=== PATIENT | female | born 1945 | race Caucasian/White ===

== ENCOUNTER → 2016-12-08 | Day surgery (SDC) | payer MEDICARE, OTHER ==
[~2016-12-08] VITALS: Ht 152.4 cm; Wt 58.5 kg
[~2016-12-08] MED LIST: ACETAMINOPHEN 325 MG TAB ONE; CIPR0.3S2 RIGHT EYE; CYCLOPENTOLATE HCL 1% OPHT SOLN 2 ML BTL ONE; DEXAMETHASONE SOD PHOS 4 MG/ML VIAL ONE; FAMOTIDINE 20 MG/2 ML VIAL ONE; KETO0.5S2 EACH EYE; KETO0.5S2 RIGHT EYE; MELA1TAB18 PO; MIDAZOLAM HCL 2 MG/2 ML VIAL ONE; ONDANSETRON HCL 4 MG/2 ML VIAL IV PUSH ONE; PHENYLEPHRINE HCL 10% OPTH SOLN 5 ML BTL ONE; PRED1SUS RIGHT EYE; PRED1SUS6 EACH EYE; PROPOFOL 200 MG/20 ML AMP IV ONE; SODIUM CHLORID 0.9% 500 ML INJ 500 ML ONE; TETRACAINE 0.5% OPTH SOLN 4 ML BTL RIGHT EYE ONE; TROPICAMIDE 1% OPHT SOLN 15 ML BTL ONE; fentaNYL CITRATE 250 MCG/5 ML AMP ONE
[2016-12-08 07:30] VITALS: BP 129/72; PULSE 60; RESP 16; TEMP 97.9; O2SAT 94
[2016-12-08] MEDS: TOBRAMYCIN/DEXAMETHASONE OPTH OINT 3.5 GM TUBE ONE ×2 (09:26)
--- NOTE | 2016-12-08 09:42 | PD.OP ---
Operative Report Date of Surgery: Dec 08, 2016 Preoperative Diagnosis: (1) Nuclear sclerotic cataract of right eye Postoperative Diagnosis: (1) Pseudophakia of right eye Procedure: phacoemulsification and intraocular lens implant right eye Anesthesia: General Surgeon: Gabi Pedroza Brass Cutter(s): none Operation and Findings: Patient was consented for surgery and taken back to the operating room. She was put under general anesthesia and prepped and draped in the usual sterile fashion for ophthalmic surgery. A wire lid speculum was placed in the right eye. A paracentesis incision was created at the 11 o'clock position on the limbus. Vision blue dye and viscoelastic was injected into the anterior chamber. The main incision was created at the 8 o'clock position on the limbus with a 2.4 mm keratome. A continuous curvilinear capsulorrhexis was made on the anterior lens capsule. Hydrodissection was used to separate the nucleus from the capsule. Phacoemulsification was used to remove the lens nucleus material. Irrigation and aspiration was used to remove the remaining cortical material. The lens implant ([id number] [id number] SN [id number]) was placed in the capsular bag. Viscoelastic was removed with irrigation and aspiration. The incisions were irrigated and found to be watertight. Tobradex ointment, a patch, and shield were placed on the right eye. The patient was sent to PACU in stable condition. Gabi Pedroza MD Dec 08, 2016 09:42
[2016-12-08 11:40] VITALS: BP 136/76; PULSE 72; RESP 18; TEMP 97.9; O2SAT 98
== END | disposition home or self-care (01) ==
LOC: PHSDC 06:51
PROVIDERS: ATTEND Ophthalmology
DX: H25.11 Age-related nuclear cataract, right eye (principal)
CPT/HCPCS: 00142; 66984; J1100; J2250; J2405; J3010; J7040; V2632; 36415

== ENCOUNTER → 2016-12-29 | Day surgery (SDC) | payer MEDICARE, OTHER ==
[~2016-12-29] VITALS: Ht 152.4 cm; Wt 58.8 kg
[~2016-12-29] MED LIST changes: -ACETAMINOPHEN 325 MG TAB ONE; -DEXAMETHASONE SOD PHOS 4 MG/ML VIAL ONE; -FAMOTIDINE 20 MG/2 ML VIAL ONE; -MIDAZOLAM HCL 2 MG/2 ML VIAL ONE; -ONDANSETRON HCL 4 MG/2 ML VIAL IV PUSH ONE; +TETRACAINE 0.5% OPTH SOLN 2 ML BTL ONE; +TETRACAINE 0.5% OPTH SOLN 4 ML BTL LEFT EYE ONE; -TETRACAINE 0.5% OPTH SOLN 4 ML BTL RIGHT EYE ONE; +TOBRAMYCIN/DEXAMETHASONE OPTH OINT 3.5 GM TUBE ONE; +VISCOAT OPHT IRRIG SOLN 0.75 ML SYRINGE LEFT EYE ONE; -fentaNYL CITRATE 250 MCG/5 ML AMP ONE
[2016-12-29 07:59] VITALS: BP 153/78; PULSE 61; RESP 16; TEMP 97.6; O2SAT 96
[2016-12-29 09:21] VITALS: PULSE 72
--- NOTE | 2016-12-29 09:27 | PD.OP ---
Operative Report Date of Surgery: Dec 29, 2016 Preoperative Diagnosis: (1) Nuclear sclerotic cataract of left eye Postoperative Diagnosis: (1) Pseudophakia of left eye Procedure: phacoemulsification and intraocular lens implant left eye Anesthesia: General Surgeon: Gabi Pedroza Gas Analyst(s): none Operation and Findings: Patient was consented for surgery and taken back to the operating room. She was put under general anesthesia and prepped and draped in the usual sterile fashion for ophthalmic surgery. A wire lid speculum was placed in the left eye. A paracentesis incision was created at the 5 o'clock position on the limbus. Vision blue dye, intracameral lidocaine, and viscoelastic was injected into the anterior chamber. The main incision was created at the 2 o'clock position on the limbus with a 2.4 mm keratome. A continuous curvilinear capsulorrhexis was made on the anterior lens capsule. Hydrodissection was used to separate the lens from the capsule. Phacoemulsification was used to remove the lens nucleus material. Irrigation and aspiration was used to remove the remaining cortical material. The lens implant ([id number] 21.5 D [id number]) was placed in the capsular bag. Viscoelastic was removed with irrigation and aspiration. The incisions were irrigated and found to be watertight. Tobradex ointment, a patch , and shield were placed on the left eye. The patient was sent to PACU in stable condition. Gabi Pedroza MD Dec 29, 2016 09:26
[2016-12-29 09:45] VITALS: TEMP 98
[2016-12-29 09:50] VITALS: PULSE 65
[2016-12-29 10:20] VITALS: BP 133/74; PULSE 60; RESP 14; O2SAT 96
== END | disposition home or self-care (01) ==
LOC: PHSDC 07:42
PROVIDERS: ATTEND Ophthalmology
DX: H25.12 Age-related nuclear cataract, left eye (principal)
CPT/HCPCS: 00142; 66984; J7040; V2632

== ENCOUNTER 2017-10-28 14:28 | Emergency (ER) | payer MEDICARE, OTHER ==
[~2017-10-28] VITALS: Ht 152.4 cm; Wt 65.0 kg
[~2017-10-28 14:28] MED LIST changes: -CIPR0.3S2 RIGHT EYE; -CYCLOPENTOLATE HCL 1% OPHT SOLN 2 ML BTL ONE; -KETO0.5S2 EACH EYE; -KETO0.5S2 RIGHT EYE; -PHENYLEPHRINE HCL 10% OPTH SOLN 5 ML BTL ONE; -PRED1SUS RIGHT EYE; -PROPOFOL 200 MG/20 ML AMP IV ONE; -SODIUM CHLORID 0.9% 500 ML INJ 500 ML ONE; -TETRACAINE 0.5% OPTH SOLN 2 ML BTL ONE; -TETRACAINE 0.5% OPTH SOLN 4 ML BTL LEFT EYE ONE; -TOBRAMYCIN/DEXAMETHASONE OPTH OINT 3.5 GM TUBE ONE; -TROPICAMIDE 1% OPHT SOLN 15 ML BTL ONE; -VISCOAT OPHT IRRIG SOLN 0.75 ML SYRINGE LEFT EYE ONE
[2017-10-28 14:32] VITALS: BP 110/60; PULSE 84; RESP 18; TEMP 98.1; O2SAT 97
[2017-10-28] MEDS ORDERED: LEVO.05 PO (14:44)
--- NOTE | 2017-10-28 14:54 | PD ---
HPI Chief Complaint: Fall Time Seen by Provider: 14:51 Travel History International Travel<30 days: No Contact w/Intl Traveler<30days: No Traveled to known affect area: No History of Present Illness HPI The patient is 72 years old and has had frequent falls lately. Today the patient walked at least a mile and then fell. She has seen a doctor previously for the same complaint. There was no loss of consciousness. There is no mechanical mechanism either. The patient states legs gave way and she fell on the ground. She has no head injury to report her pain about the head. She fell onto the right knee however was ambulatory immediately thereafter. It happened in front of a restaurant EMS was activated and the patient was brought here where EMS provided the same history is that given by the patient. Vital signs are normal on scene. Patient is feeling her normal self lately. PFSH Past Medical History Cancer: Yes (BRAIN TUMOR (2005)) Cardiovascular Problems: No Diabetes: No Endocrine: No Genitourinary: No Hepatitis: No Hiatal Hernia: No Immune Disorder: No Musculoskeletal: No Neurologic: No Psychiatric: Yes (CLAUSTROPHOBIA) Reproductive: No Respiratory: No Thyroid Disease: Yes (HYPOTHROIDISM) Tetanus Vaccination: Unknown Influenza Vaccination: Yes ?: Not Menopausal: Yes Past Surgical History Abdominal Surgery: No AICD: No Cardiac Surgery: No Ear Surgery: No Endocrine Surgery: No Eye Surgery: No Genitourinary Surgery: No Gynecologic Surgery: No Joint Replacement: No Neurologic Surgery: Yes (BRAIN TUMOR REMOVAL 2005) Oral Surgery: No Pacemaker: No Thoracic Surgery: No Other Surgery: Yes Social History Alcohol Use: No Tobacco Use: No Substance Use: No Allergies-Medications (Allergen,Severity, Reaction): Coded Allergies: No Known Allergies (Unverified , 01/25/17) Reported Meds & Prescriptions Reported Meds & Active Scripts Active Reported Synthroid (Levothyroxine Sodium) 50 Mcg Tab 50 Mcg PO DAILY Prednisolone Acetate Opth 1% Susp 1 Drop EACH EYE BID Melatonin 10 Mg Tab 10 Mg PO HS PRN Review of Systems Except as stated in HPI: all other systems reviewed are Neg General / Constitutional: No: Fever Physical Exam Narrative GENERAL: Well-nourished well-developed 72-year-old female pleasant no acute distress Vital Signs Date Time Temp Pulse Resp B/P (MAP) Pulse Ox O2 Delivery O2 Flow Rate FiO2 10/28/17 14:36 84 Room Air 10/28/17 14:32 98.1 84 18 110/60 (77) 97 SKIN: Warm and dry. Trace abrasion overlying the nose well-healed appears old. HEAD: Atraumatic. Normocephalic. EYES: Pupils equal and round. No scleral icterus. No injection or drainage. ENT: No nasal bleeding or discharge. Mucous membranes pink and moist. NECK: Trachea midline. No JVD. CARDIOVASCULAR: Regular rate and rhythm. RESPIRATORY: No accessory muscle use. Clear to auscultation. Breath sounds equal bilaterally. GASTROINTESTINAL: Abdomen soft, non-tender, nondistended. Hepatic and splenic margins not palpable. MUSCULOSKELETAL: The patient is ambulatory with a normal gait. No gross deformity. Trace ecchymosis about the right patella. NEUROLOGICAL: Awake and alert. No obvious cranial nerve deficits. Motor grossly within normal limits. Five out of 5 muscle strength in the arms and legs. Normal speech. PSYCHIATRIC: Appropriate mood and affect; insight and judgment normal. Data Data Last Documented VS Vital Signs Date Time Temp Pulse Resp B/P (MAP) Pulse Ox O2 Delivery O2 Flow Rate FiO2 10/28/17 14:36 84 Room Air 10/28/17 14:32 98.1 18 110/60 (77) 97 MDM Medical Decision Making Medical Screen Exam Complete: Yes Emergency Medical Condition: Yes Medical Record Reviewed: Yes Differential Diagnosis Weakness, frequent falls, fracture Narrative Course Patient ambulated in the ER with no difficulty. Given the mechanism described in the absence loss consciousness/presyncope type symptoms in the patient's ability to ambulate without difficulty and she'll be discharged home with a plan to follow up with primary care provider as needed. Diagnosis Primary Impression: Fall Qualified Codes: W19.XXXA - Unspecified fall, initial encounter Referrals: Primary Care Physician call for appointment Med/Other Pt SpecificInfo: No Change to Meds Disposition: 01 DISCHARGE HOME Condition: Stable Rangel Chau MD Oct 28, 2017 14:54
== END 2017-10-28 15:25 | disposition home or self-care (01) ==
LOC: PHED 14:28
DX: R55 Syncope and collapse (principal)
CPT/HCPCS: 99283